=== PATIENT | female | born 1955 | race Caucasian/White ===

== ENCOUNTER → 2017-03-18 | Outpatient (CLI) | payer BC ==
--- NOTE | 2017-03-18 08:53 | REP ---
Clinical: Acute pain. Technique: AP, lateral, bilateral oblique, and sunrise views of the left knee. Findings: Mild tricompartmental degenerative changes are appreciated including cortical irregularity, marginal spurring at the medial compartment and along the patellar margin as well as subchondral sclerosis and medial as well as patellofemoral joint space narrowing. No acute fracture dislocation. No obvious effusion. Impression: Mild arthritic degenerative changes.
== END ==
LOC: M CLY 08:13
PROVIDERS: ATTEND Family Medicine
DX: M25.562 Pain in left knee (principal)